=== PATIENT | male | born 2000 | race Two or more races ===

== ENCOUNTER 2022-05-09 21:15 | Emergency (ER) | payer SELFPAY ==
--- NOTE | ~2022-05-09 | US_ITS ---
EXAMINATION: US scrotum doppler DATE: 05/09/2022 22:04 INDICATION: Left testicular pain. TECHNIQUE: Grayscale and Doppler ultrasound images of the testes were obtained. COMPARISON: None. FINDINGS: The right testis measures 4.2 x 2.2 x 2.7 cm. The left testis measures 3.8 x 2.5 x 2.6 cm. There is normal vascular flow to both testes. The right epididymis is normal with normal vascular chanell w. The left epididymis is normal with normal vascular flow. There is no hydrocele. There is a left va ricocele. IMPRESSION: 1. No etiology for the patient's symptoms. Reviewed, dictated and finalized at location A. [facility] TEACHER
[2022-05-09 21:19] VITALS: BP 151/75; PULSE 80; RESP 16; TEMP 36.4; O2SAT 98
--- NOTE | 2022-05-09 23:18 | PC.NURSE ---
Pt reports pain and swelling to left testicle that started this morning. On exam mild swelling noted along with redness. States he has had a similar episode in the past but it only lasted for 20 minutes.
--- NOTE | 2022-05-09 23:47 | PC.NURSE ---
Pt is asking how much longer until he is seen by a provider. This RN has asked both ER providers to see pt but they are unavailable. Informed pt of this and apologized for the wait. Pt states he will wait a little bit longer but if the wait is too long he is going to leave.
--- NOTE | 2022-05-10 00:15 | PC.NURSE ---
Pt registration entered room to register pt and neither the pt or his girlfriend were in the room. Pt left without being seen by ER provider.
== END 2022-05-10 00:41 | disposition left against medical advice (07) ==
PROVIDERS: Emergency Provider Emergency Medicine
DX: N50.812 Left testicular pain (principal)
CPT/HCPCS: 76870; 93976; 99199

== ENCOUNTER 2022-05-13 11:41 | Emergency (ER) | payer SELFPAY ==
[2022-05-13 11:57] VITALS: BP 141/84; PULSE 63; RESP 16; TEMP 36.3; O2SAT 99
--- NOTE | 2022-05-13 12:09 | ED.MALEGU ---
HPI - Male Genitourinary General Chief complaint: Urogenital-Male Stated complaint: Pelvic Pain Time Seen by Provider: 05/13/22 12:09 Source: patient, RN notes reviewed and old records reviewed Mode of arrival: ambulatory Limitations: no limitations History of Present Illness HPI Narrative: 22-year-old male presents to the [facility] with left testicular pain and swelling. Patient reports that it started night. Was seen in the ER at that time. States that a provider did not see him and he walked out after 5 hours. Patient states Friday was fine and pain was better, today pain is ?excruciating with increased swelling. Patient is also complaining of left lower quadrant pain MD Complaint: testicle pain and testicle swelling Onset (ago): day(s) (4) Duration: progressively worsening Location: left testicle Radiation: left inguinal region Severity: severe Severity scale (1-10): 9 Related Data Sexually active: Yes Home Medications Medication Instructions Recorded Confirmed No Home Medications 05/13/22 05/13/22 Allergies Allergy/AdvReac Type Severity Reaction Status Date / Time No Known Allergies Allergy Verified 05/13/22 11:56 Review of Systems Review of Systems: All systems reviewed & are unremarkable except as noted in HPI and below Constitutional: Constitutional: Reports no additional constitutional complaints Eyes: Eyes: Reports no additional eye complaints ENT: Reports system reviewed and no additional complaints, except as documented Cardiovascular: Cardiovascular: Reports no additional cardiovascular complaints, Denies chest pain and Denies dyspnea Respiratory: Respiratory: Reports no additional respiratory complaints, Denies chest congestion, Denies cough and Denies dyspnea Gastrointestinal: Gastrointestinal: Reports no additional gastrointestinal complaints, Denies abdominal pain, Denies nausea and Denies vomiting Genitourinary: Genitourinary: Reports as per HPI, Denies dysuria, Reports scrotal swelling and Reports testicular pain Musculoskeletal: Musculoskeletal: Reports no additional musculoskeletal complaints Integumentary/Breasts: Skin/Breast: Reports system reviewed and no additional complaints, except as docu Neurologic: Reports system reviewed and no additional complaints, except as documented Psychiatric: Psychiatric: Reports no additional psychiatric complaints Allergic/Immunologic: Allergic/Immunologic: Reports no additional allergic/immunologic complaints PMFSH Past Medical History Medical History (Updated 05/13/22 @ 12:26 by Karen Mcgovern APRN) Patient denies medical problems Social History Social History (Updated 05/13/22 @ 12:19 by Karen Mcgovern APRN) Gender identity (if verbalized by the patient): Male Comments At the time of my signature, I reviewed and agree with the nursing past medical, surgical, social, and family history. There is no relevant family history pertinent to the patient complaint. Exam Const: General: cooperative, healthy appearing, comfortable, no acute distress, well developed, alert and well nourished Nutritional Appearance: well nourished Orientation/consciousness: patient oriented x3 Limitations: no limitations HENMT: Head: normal to inspection Ears: hearing grossly normal bilaterally and external ears normal Face/Nose/Sinus: Normal external nose present, Normal nares present, Normal nasal mucous membranes and turbinates present and normal facial exam Face and sinus: normal facial exam Eyes: General: appearance normal, both eyes and all related structures Alignment and Position: alignment normal Periorbital: periorbital findings normal Conjunctivae: conjunctivae normal Pupils: Equal, round and reactive pupils present EOM: EOMs intact bilaterally Neck: Neck: normal visual inspection, full ROM, no lymphadenopathy and no meningeal signs Chest: Chest palpation & inspection: normal inspection of the chest Resp:
== END 2022-05-13 12:14 | disposition short-term general hospital (02) ==
PROVIDERS: Emergency Provider Nurse Practitioner
DX: N50.89 Other specified disorders of the male genital organs (principal); N50.812 Left testicular pain
CPT/HCPCS: 99212; G0463

== ENCOUNTER 2022-05-13 12:34 | Emergency (ER) | payer SELFPAY ==
--- NOTE | ~2022-05-13 | US_ITS ---
EXAMINATION: US scrotum doppler DATE: 05/13/2022 14:39 INDICATION: Left testicular pain and swelling. TECHNIQUE: Grayscale and Doppler ultrasound images of the testes were obtained. COMPARISON: Ultrasound 05/09/2022 FINDINGS: The right testis measures 4.1 x 2.1 x 2.6 cm. The left testis measures 4.1 x 2.1 x 2.7 cm. There is normal vascular flow to both testes. The right epididymis is normal with normal vascular chanell w. The left epididymis is enlarged and heterogeneously hypoechoic with increased vascularity. There i s a 2 mm cyst in the tail of the epididymis. There is no varicocele or hydrocele. IMPRESSION: 1. Left-sided epididymitis. Reviewed, dictated and finalized at location A. LOPE CUTTER IMPRESSION: 1. Left-sided epididymitis.
[2022-05-13 12:56] VITALS: BP 147/73; PULSE 62; RESP 14; TEMP 36.8; O2SAT 99
[2022-05-13 13:51] LABS: Appearance Urine Clear (Clear); Bilirubin Urine Negative (Negative); Blood Urine Negative (Negative); Color Urine Yellow (Yellow); Glucose Urine UA Negative (Negative); Ketones Urine Negative (Negative); Leukocyte Esterase Ur Negative LEU/UL (Negative); Nitrate Urine Negative (Negative); Protein Urine Negative (Negative); Urobilinogen Urine 0.2 mg/dL (<2.0); pH Urine 6.5 (5.0-9.0)
[2022-05-13 13:59] LABS: Add Urine Microscopic? NO
--- NOTE | 2022-05-13 14:00 | ED.MALEGU ---
HPI - Male Genitourinary General Chief complaint: Urogenital-Male Stated complaint: same pain as last time Time Seen by Provider: 05/13/22 13:12 Source: patient and other (outside facility) Mode of arrival: ambulatory Limitations: no limitations History of Present Illness HPI Narrative: This 22 year old male patient is independently ambulatory to the ER accompanied by his significant other, sent from urgent care, with complaints of having left testicular pain and swelling now for 5-6 days. He denies any acute injury, but states he does lift weights every morning. The pain intensified causing him to present here four days ago. US was performed at that time but pt. left prior to the results because he didn't want to wait. He presented to the urgent care today with the same complaint and was sent here for evaluation once again. The US from 4 days ago demonstrated a varicocele but no other acute findings. Today he states that his original pain started to go away, but it returned this morning and is worse. However, the pt. has continued edema, notes it is higher than the right side and he also has a discoloration of the left side today. When asked about chance or risk of STD, he responds, Maybe. He denies any discharge and he has no fevers. Nothing makes better or worse. He denies any urinary burning, urgency, frequency or hematuria. Duration: intermittent and progressively worsening Location: left testicle Severity scale (1-10): 5 Quality: aching Relieving factors: none Exacerbating factors: none Context: lifting Associated symptoms: Reports denies other symptoms Related Data Allergies Allergy/AdvReac Type Severity Reaction Status Date / Time No Known Allergies Allergy Verified 05/13/22 11:56 Review of Systems Review of Systems: All systems reviewed & are unremarkable except as noted in HPI and below PMFSH Past Medical History Medical History Patient denies medical problems Social History Social History Gender identity (if verbalized by the patient): Male Exam Const: General: healthy appearing, no acute distress and alert Nutritional Appearance: well nourished Limitations: no limitations HENMT: Head: normal to inspection Throat: posterior oropharynx normal and uvula midline Eyes: Conjunctivae: conjunctivae normal Neck: Neck: normal visual inspection and no lymphadenopathy Resp: Effort & Inspection: normal respiratory effort Cardio: Rate: regular rate Rhythm: regular rhythm Heart sounds: no murmurs GI: Inspection: non-distended GI Palp: Yes Soft to palpation, No Tenderness to palpation present (GI), No Guarding due to palpation present (GI) and No Hernia present Auscultation: normal bowel sounds : General: Yes bladder normal to palpation and Yes no CVA tenderness Male General Exam: Yes normal external exam Scrotum: scrotal swelling on the left Testes: epididymal tenderness on the right, testicular swelling on the left and testicular tenderness on the left Other: + Cremasteric Reflex. Skin: General skin exam: No normal color (Left testicle appears more red in color as compared to the right.) Rashes: no rashes Wounds: no wounds Neuro: General: patient oriented x3, moves all extremities and no focal motor deficits Speech: normal speech Extrem: General: normal to inspection and no pedal edema Psych: Mental Status: mental status grossly normal Affect: normal affect Course Course Emergency Course: PT had repeat US of scrotum given that there was interval change in his symptoms and it demonstrated epididymitis. Pt. is agreeable to accepting treatment for potential GC/Chlamydia and further treatment with Doxy. He has stable and normal VS and he was educated on how Epididymitis is spread. He is aware that it will be a couple of days before we have results of the GC and Chlamydia. Vital Signs
[2022-05-13 14:43] LABS: Basophils Percent Auto 0.5 % (0.2-1.2); Eosinophils Absolute Auto 0.1 K/mm3 (0-0.3); Eosinophils Percent Auto 0.9 % (0-4.4); Hematocrit 43.2 % (42.0-52.0); Hemoglobin 14.8 g/dL (14.0-18.0); Immature Granulocyte Absolute 0.02 K/mm3 (0.00-0.031); Immature Granulocyte Percent A 0.3 % (0-0.5); Lymphocytes Absolute Auto 1.96 K/mm3 (0.9-3.2); Lymphocytes Percent Auto 26.1 % (18.3-44.2); Mean Corpuscular HGB Conc 34.3 g/dl (32-36); Mean Corpuscular Hemoglobin 29.9 pg (26-34); Mean Corpuscular Volume 87.3 fl (80-100); Mean Platelet Volume 11.7 fl (7.4-10.4); Monocytes Absolute Auto 0.7 K/mm3 (0.1-0.6); Monocytes Percent Auto 8.6 % (2.6-8.5); Neutrophils Absolute Auto 4.8 K/mm3 (1.3-6.7); Neutrophils Percent Auto 63.6 % (45.5-73.1); Platelet Count Result 152 k/mm3 (150-375); Red Blood Count 4.95 M/mm3 (4.6-6.20); Red Cell Distribution Width 11.6 % (11.5-14.5); White Blood Count 7.5 K/mm3 (4.5-10.0)
[2022-05-13 14:53] LABS: Alanine Aminotransferase 24 U/L (6-50); Albumin Level 4.5 g/dL (3.5-5.1); Alkaline Phosphatase 60 U/L (38-126); Anion Gap 5 mmol/L (8-16); Aspartate Amino Transferase 25 U/L (17-59); Bilirubin,Total 0.9 mg/dL (0.2-1.3); Blood Urea Nitrogen 11 mg/dL (9-20); Calcium 9.2 mg/dL (8.4-10.2); Carbon Dioxide 28 mmol/L (22-30); Chloride 102 mmol/L (98-107); Estimated CRCL calculation 145 ml/min; Estimated Glomerular Filt Rate > 60; Glucose 95 mg/dL (65-110); Potassium 4.1 mmol/L (3.4-5.0); Sodium 135 mmol/L (137-145)
[2022-05-13] MEDS: AZITHROMYCIN 250 MG TABLET 1000 MG PO (15:46)
[2022-05-13] MEDS: cefTRIAXone 250 MG VIAL IM (15:46)
== END 2022-05-13 15:57 | disposition home or self-care (01) ==
PROVIDERS: Emergency Medicine; Emergency Provider Nurse Practitioner Adult Health
DX: N45.1 Epididymitis (principal)
CPT/HCPCS: 36415; 76870; 80053; 81003; 85025; 87491; 87591; 93976; 96372; 99283; 99284; A9270; J0696

== ENCOUNTER 2023-04-20 17:56 | Emergency (ER) | payer SELFPAY ==
[2023-04-20 18:10] VITALS: BP 153/79; PULSE 74; RESP 16; TEMP 37.7; O2SAT 100
--- NOTE | 2023-04-20 18:10 | ED.URI ---
HPI - URI/Sore Throat General Chief Complaint: Upper Respiratory Infection Stated Complaint: fever,cough,bodyaches,throat hurts Time Seen by Provider: 04/20/23 18:10 Source: patient Mode of arrival: ambulatory Limitations: no limitations History of Present Illness HPI Narrative: Tg is a 23-year-old male patient presenting to the clinic today with complaints of cough, fever, body aches, and sore throat x4 days. Temperature in the clinic today is 37.7. Does not know with the highest temperature he had was. Patient is very vague with symptoms when asked work in his symptoms he is having he says ?everything?. When I asked what brought the patient to the clinic today he said ?sick? MD elicited complaint: sore throat and nasal congestion Related Data Allergies Allergy/AdvReac Type Severity Reaction Status Date / Time No Known Allergies Allergy Verified 05/20/22 13:23 Review of Systems Review of Systems: Pertinent positives per HPI. Patient denies any rash, headache, visual changes, dizziness,shortness of breath, chest pain, palpitations, nausea, vomiting, diarrhea, constipation, abdominal pain, or any urinary issues. [facility] Past Medical History Medical History Patient denies medical problems Social History Social History Gender identity (if verbalized by the patient): Male Comments At the time of my signature, I reviewed and agree with the nursing past medical, surgical, social, and family history. There is no relevant family history pertinent to the patient complaint. Exam Narrative: General: Well-developed, well nourished, in no apparent distress Head: Normocephalic, atraumatic Eyes: Pupils equally round and reactive to light bilaterally, EOM intact, sclera and conjunctive clear, no discharge, lids normal Ears: TMs intact and congested, ear canals clear, no drainage, grossly hearing normal. Nose: Nares patent, clear nasal discharge, no inflammation, no sinus tenderness. Mouth: Oral pharynx red without lesions or masses, good dentition, MMM. Neck: Supple, trachea midline, no enlargement of anterior or posterior cervical nodes, no thyroid masses or goiter palpable. Cardio: Regular rate and rhythm, s1 and s2 normal, no murmur appreciated. Resp: Faint expiratory wheezing, no rhonchi, rales, or rubs Course Course Emergency Course: Portions of this record may have been created with voice recognition software. Level of Care: Express Care Visit Vital Signs Vital signs: Vital signs reviewed MDM - URI/Sore Throat MDM Narrative Medical decision making narrative: At the time of visit patient is resting comfortably on the exam table. Patient appears to be nontoxic. COVID and influenza testing was performed. COVID testing was negative. Influenza testing was positive for influenza B. Patient declined strep testing. Explained to the patient that he is out of the window for Tamiflu treatment. Supportive measures were discussed with the patient and they voiced understanding discharge instructions and agrees to treatment plan. Return precautions reviewed Differential Diagnosis Differential diagnosis: Likely upper respiratory infection, otitis media, sinusitis, viral infection, bronchitis, influenza, pharyngitis and other (COVID) Discharge Plan Discharge Clinical Impression: Influenza B Patient Disposition: Home, Self-Care Condition: Stable Instructions: Antibiotic Form, Influenza (ED) Additional Instructions: Take prescription medications as prescribed-albuterol inhaler May take DayQuil/NyQuil for cold/flu symptoms Increase fluids and stay well hydrated Tylenol/motrin for pain/fever Flonase and OTC antihistamines as directed Vicks vapor rub to open sinuses Sinus rinses for congestion Cepacol spray, cough drops, throat lozenges, warm tea with honey/lemon, gargle
== END 2023-04-20 18:30 | disposition home or self-care (01) ==
PROVIDERS: Emergency Provider Nurse Practitioner Family
DX: J10.1 Influenza due to other identified influenza virus with other respiratory manifestations (principal); Z20.822 Contact with and (suspected) exposure to COVID-19
CPT/HCPCS: 87426; 87804; 99213; C9803; G0463

== ENCOUNTER 2023-07-07 15:38 | Outpatient (CLI) | payer OTHER, SELFPAY ==
--- NOTE | ~2023-07-07 | US_ITS ---
US scrotum doppler DATE: 07/07/2023 18:03 INDICATION: Male infertility TECHNIQUE: Real-time and color flow imaging and Doppler analysis of the scrotal contents COMPARISON: 05/13/2022 scrotal ultrasound FINDINGS: Right testicle measures 2.3 x 4.1 x 2.8 cm. Left testicle measures 2.3 x 3.3 x 3 cm. No bijal ticular mass lesion or torsion. There is homogeneous echotexture and normal color flow signal/Doppler signal of the testicles. No testicular mass lesion or torsion is evident. The epididymis appears unremarkable bilaterally with the exception of a 2 mm septated cyst of the hea d of the left epididymis. No hydrocele or varicocele. IMPRESSION: No significant abnormality Reviewed, dictated and finalized at Location [facility]. Reviewed, dictated and finalized at location L. IMPRESSION: No significant abnormality
== END 2023-07-07 15:39 | disposition home or self-care (01) ==
LOC: ANHIMG 15:45
PROVIDERS: Visit Provider Urology
DX: N46.9 Male infertility, unspecified (principal)
CPT/HCPCS: 76870; 93976

== ENCOUNTER 2023-09-21 08:31 | Emergency (ER) | payer OTHER, SELFPAY ==
[2023-09-21 08:41] VITALS: BP 135/64; PULSE 63; RESP 17; TEMP 36.4; O2SAT 99
--- NOTE | 2023-09-21 09:20 | ED.EYEPROB ---
HPI - Eye Problem General Chief complaint: Eye Problems Stated complaint: RIGHT EYE PAIN Time Seen by Provider: 09/21/23 08:35 Source: patient Mode of arrival: ambulatory Limitations: no limitations History of Present Illness HPI Narrative: 23-year-old otherwise healthy here with complaints of right eye pain and irritation for past 2 days. 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 chief complaint: eye pain Onset (ago): day(s) (2) Duration: constant Location: right eye Eye Symptoms: redness, pain and foreign body sensation Place: work Mechanism: direct trauma Severity: mild If Pain, Quality: aching Associated symptoms: none Treatments Prior to Arrival: none Related Data Allergies Allergy/AdvReac Type Severity Reaction Status Date / Time No Known Allergies Allergy Verified 09/21/23 08:36 Review of Systems Review of Systems: All systems reviewed & are unremarkable except as noted in HPI and below Constitutional: Constitutional: Reports no additional constitutional complaints Eyes: Eyes: Reports as per HPI ENT: Reports system reviewed and no additional complaints, except as documented Cardiovascular: Cardiovascular: Reports no additional cardiovascular complaints Respiratory: Respiratory: Reports no additional respiratory complaints Gastrointestinal: Gastrointestinal: Reports no additional gastrointestinal complaints Musculoskeletal: Musculoskeletal: Reports no additional musculoskeletal complaints PMFSH Past Medical History Medical History Patient denies medical problems Social History Social History Gender identity (if verbalized by the patient): Male Exam Narrative: GENERAL: Well-appearing, well-nourished, and in no acute distress. HEAD: Normocephalic, atraumatic. EYES: PERRLA and EOMI. Increase uptake of fluorescein dye from 2 O' to 5 O'clock position , no FB seen ENT: Nares clear, no rhinorrhea or epistaxis. Mucous membranes moist. NECK: Supple. CHEST: Clear to auscultation. No respiratory distress. HEART: Regular rate and rhythm. No murmur heard. Normal peripheral pulses. ABDOMEN: Soft, nontender, nondistended, normal active bowel sounds. EXTREMITIES: Normal range of motion. No edema. SKIN: Warm, dry, no rash. NEURO: No focal deficits. Alert and oriented x3. PSYCH: Normal mood and affect. Course Course Emergency Course: Notified patient about his clinical findings advised him to use antibiotic eye drops, follow-up with the eye doctor Vital Signs Vital signs: Vital Signs Temperature 36.4 C 09/21/23 08:41 Pulse Rate 63 09/21/23 08:41 Respiratory Rate 17 09/21/23 08:41 Blood Pressure 135/64 09/21/23 08:41 Pulse Oximetry 99 09/21/23 08:41 Temperature 36.4 C 09/21/23 08:41 Pulse Rate 63 09/21/23 08:41 Respiratory Rate 17 09/21/23 08:41 Blood Pressure 135/64 09/21/23 08:41 Pulse Oximetry 99 09/21/23 08:41 Discharge Plan Discharge Clinical Impression: Corneal abrasion Patient Disposition: Home, Self-Care Condition: Stable Instructions: Corneal Abrasion (DC) Additional Instructions: Use the eye drops as prescribed , Follow with [facility] , call [phone] for an appointment. Prescriptions: New moxifloxacin 0.5 % drops 1 drp EACH EYE TID 7 Days Qty: 3 0RF No Action albuterol sulfate 90 mcg/actuation HFA aerosol inhaler 2 puff inhalation Q4-6H PRN (Reason: shortness of breath or wheezing) 30 Days Qty: 8.5 0RF Follow-up/Referrals: PHYSICIAN,RESEARCH LABORATORY MANAGER [Primary Care Provider] - Time of Disposition: 09:27
== END 2023-09-21 09:46 | disposition home or self-care (01) ==
PROVIDERS: Emergency Provider Family Medicine
DX: S05.01XA Injury of conjunctiva and corneal abrasion without foreign body, right eye, initial encounter (principal); W26.8XXA Contact with other sharp object(s), not elsewhere classified, initial encounter
CPT/HCPCS: 99283

== ENCOUNTER 2025-04-18 18:55 | Emergency (ER) | payer OTHER, SELFPAY ==
--- NOTE | 2025-04-18 19:07 | ED.URI ---
HPI - URI/Sore Throat General Chief Complaint: Upper Respiratory Infection Stated Complaint: URI Symptoms Time Seen by Provider: 04/18/25 19:07 Source: patient, RN notes reviewed and old records reviewed Mode of arrival: ambulatory Limitations: no limitations History of Present Illness HPI Narrative: 25-year-old male presents to the [facility] with 2 day history of sore throat, congestion, body aches and feeling feverish. No treatment prior to arrival. Related Data Home Medications ?Medication ?Instructions ?Recorded ?Confirmed ?Last Taken ?Type No Home Medications 04/18/25 04/18/25 Unknown History Allergies Allergy/AdvReac Type Severity Reaction Status Date / Time No Known Allergies Allergy Verified 04/18/25 19:11 Review of Systems Review of Systems: All systems reviewed & are unremarkable except as noted in HPI and below Constitutional: Constitutional: Reports as per HPI, Reports body ache(s), Reports fatigue and Reports fever(s) ENT: Reports as per HPI and Reports sore throat Cardiovascular: Cardiovascular: Reports no additional cardiovascular complaints, Denies chest pain and Denies dyspnea Respiratory: Respiratory: Reports no additional respiratory complaints, Denies chest congestion, Denies cough and Denies dyspnea Musculoskeletal: Musculoskeletal: Reports no additional musculoskeletal complaints Integumentary/Breasts: Skin/Breast: Reports system reviewed and no additional complaints, except as docu PMFSH Past Medical History Medical History Patient denies medical problems Social History Social History Gender identity (if verbalized by the patient): Male Comments At the time of my signature, I reviewed and agree with the nursing past medical, surgical, social, and family history. There is no relevant family history pertinent to the patient complaint. Exam Const: General: cooperative, no acute distress, well developed, alert, tired appearing, uncomfortable and well nourished Nutritional Appearance: well nourished Orientation/consciousness: patient oriented x3 Limitations: no limitations HENMT: Head: normal to inspection Ears: hearing grossly normal bilaterally, external ears normal, TM's normal bilaterally, EAC's normal, mastoids normal and no periauricular adenopathy Face and sinus: normal facial exam Mouth: Yes Normal oral and palatal mucosa present, Yes lip normal, Yes tongue normal and Yes moist mucous membranes Throat: posterior oropharynx normal, uvula midline and no uvular edema Eyes: General: appearance normal, both eyes and all related structures Alignment and Position: alignment normal Neck: Neck: normal visual inspection, full ROM, no lymphadenopathy and no meningeal signs Chest: Chest palpation & inspection: normal inspection of the chest Resp: Effort & Inspection: normal respiratory effort and able to speak in complete sentences Auscultation: clear to auscultation bilaterally, no crackles, no rales, no rhonchi and no wheezes Cardio: Rate: regular rate Skin: General skin exam: normal color and no rashes or lesions noted Neuro: General: patient oriented x3, gait normal, moves all extremities and no meningeal signs Cognition (Neuro): normal cognition Speech: normal speech Gait exam (Neuro): Normal gait present Extrem: General: normal to inspection, full ROM, capillary refill normal and normal gait Psych: Appearance: grossly normal and well kempt Mental Status: mental status grossly normal Speech and movement: Normal speech and movement present and Clear speech present Affect: normal affect Attitude: cooperative Course Course Level of Care: Express Care Visit Vital Signs Vital signs: Vital Signs Temperature 98.4 F 04/18/25 19:16 Pulse Rate 86 04/18/25 19:16 Respiratory Rate 16 04/18/25 19:16 Blood Pressure 131/67 04/18/25 19:16 Pulse Oximetry 100 04/18/25 19:16 Temperature 98.4 F 04/18/25 19:16 Pulse Rate 86 04/18/25 19:16 Respiratory Rate 16 04/18/25 19:16 Blood Pressure 131/67 04/18/25 19:16 Pulse Oximetry 100 04/18/25 19:16 reviewed MDM MDM Narrative Medical decision making narrative: Patient sitting in exam room. Patient is nontoxic, vitals are stable. Patient presents with 2 day history of URI symptoms. Patient is flu A positive. Strep and COVID negative. Patient is appropriate for outpatient treatment with close follow-up Discharge instructions reviewed with patient, as well as provided in writing per nursing staff. The instructions also include specific and strict return/GO TO THE ER as well as f/u information. All questions have been answered, and the patient deny any further questions with discharge and discharge plan. Some parts of this dictation were generated by voice recognition software and may contain typographical and/or grammatical inaccuracies. Differential Diagnosis Differential Diagnosis: Differential diagnostic considerations for upper respiratory infection include upper respiratory infection, croup, otitis media, sinusitis, viral infection, bronchitis, influenza, pharyngitis, strep, uvulitis.? Lab Data MDM Lab Attestation statement: I personally reviewed the patient's lab results. Labs: Lab Results 04/18/25 04/18/25 Range/Units 19:06 19:07 POC Influenza A Ag Positive (Negative) POC Influenza B Ag Negative (Negative) POC SARS CoV-2 Ag Negative (Negative) POC Grp A Strep Screen Negative (Negative) Reviewed Discharge Plan Discharge Clinical Impression: Influenza A Patient Disposition: Home Condition: Stable Instructions: Influenza (ED) Additional Instructions: Your rapid strep swab was negative today at [facility]. A throat culture will be sent to the laboratory for further testing. If the test is positive, you will receive a phone call within 48 hours and an appropriate antibiotic will be initiated at that time. Your rapid COVID test were negative Your rapid flu test was positive for influenza A Your symptoms are due to a viral illness, which is not treated with antibiotics. Typically viral infections last 7-10 days, can linger for couple of weeks. It is very important to treat your symptoms. Drink plenty of water, Gatorade, Pedialyte, ice pops or Jell-O. -Alternate Tylenol and Motrin per package directions for fever or pain. You can alternate every 4 hours -Antihistamine medication such as Zyrtec/Claritin/Jeny during the day can help improve symptoms. -doing daily nasal irrigations can help relieve pressure your sinuses. Things like a Neti pot -Use Flonase twice a day for 5 days then daily to help reduce the inflammation and dry up your sinuses. -You can also use Mucinex. Be sure to drink plenty of water with this medication at least 8 ounces with every dose and it is important to drink 8 to 10 glasses of water per day. Water is a natural decongestant -Eat and drink things that are easy to swallow, like tea or soup, or popsicles. -Oral rinses such as: Salt water gargles and/or may use topical anesthetic (eg. Chloraseptic spray) or lozenges to relieve dryness or throat pain). -Frequent hand washing or hand deicer kit assembler is one of the best ways to prevent spread of infection. -Using a vaporizer or humidifier at night will also help thin secretions and help with coughing up phlegm. -Follow up with primary care provider in 7-10 days if condition is not improving - For new or worsening symptoms go directly to the nearest ER Patient Language: Kevin Prescriptions: No Action No Home Medications Follow-up/Referrals: PHYSICIAN,PALLIATIVE CARE NURSE [Primary Care Provider, Internal Medicine] Stand Alone Forms: Work/School Release IP Time of Disposition: 19:19
[2025-04-18 19:16] VITALS: BP 131/67; PULSE 86; RESP 16; TEMP 36.9; O2SAT 100
[2025-04-18 19:17] LABS: EDCOVIDSCREEN Negative (Negative)
[2025-04-18 19:17] LABS: EDINFLUASCREEN Positive (Negative); EDINFLUBSCREEN Negative (Negative)
[2025-04-18 19:20] LABS: EDSTREPNEGPOS1 Negative (Negative)
== END 2025-04-18 19:25 | disposition home or self-care (01) ==
PROVIDERS: Emergency Provider Nurse Practitioner
DX: J10.1 Influenza due to other identified influenza virus with other respiratory manifestations (principal); Z20.822 Contact with and (suspected) exposure to COVID-19
CPT/HCPCS: 87081; 87426; 87804; 87880; 99213; G0463